=== PATIENT | female | born 2005 | race Caucasian/White ===

== ENCOUNTER 2025-10-30 16:57 | Emergency (ER) | payer OTHER, SELFPAY ==
--- NOTE | ~2025-10-30 | XR_ITS ---
CLINICAL HISTORY: thumb crush injury 4 view left thumb Comparison: None Findings: There is a distracted thumb distal phalangeal tuft fracture No dislocations. No significant arthritic change. No erosions. No radiopaque foreign body. IMPRESSION: 1. Distracted thumb distal phalangeal tuft fracture This document has been electronically signed by: Telly Hackett MD on 10/30/2025 20:58:20
[2025-10-30 17:06] VITALS: BP 120/84; PULSE 100; O2SAT 99
[2025-10-30 17:30] VITALS: BP 122/62; PULSE 81; RESP 16; TEMP 37.1; O2SAT 99; BMI 19.3
--- OUTSIDE RECORDS SUMMARY | 2025-10-30 18:22 | XMS_ITS | Clinical Summary ---
Author Organization [facility] Address [address] [place] [address] Care Team Providers Care [employer] Name Role Phone Unavailable Primary Care Provider Unavailabl e Medications citalopram (CeleXA) 20 mg tablet TAKE 1 & 1/2 (ONE & ONE-HALF) TABLETS BY MOUTH ONCE DAILY 07/12/2022 Active nitrofurantoin, macrocrystal-mo nohydrate, (MACROBID) 100 mg capsule TAKE 1 CAPSULE BY MOUTH EVERY 12 HOURS FOR 5 DAYS 12/20/2023 Active phenazopyridine (PYRIDIUM) 200 mg tablet Take 200 mg by mouth 3 (three) times a day if needed. 12/20/2023 Active azithromycin (Zithromax Z-Robert) 250 mg tablet Take 2 tablets the first day, then 1 tablet daily for 4 days. 6 tablet 08/31/2024 Active fluoride, sodium, (Denta 5000 Plus) 1.1 % cream Apply to teeth 1 (one) time each day. Apply pea size amount, spit and do not rinse. Use every night before bed 51 g 09/28/2025 Active Active Problems No known active problems Encounters Date Type Department Care Team Description 10/30/2025 Refill [facility] 193 [facility], [facility] [address] [place] [address] Cristy Gorman DDS 09/26/2025 9:00 AM EST Office Visit [facility] 193 [facility], [facility] [address] [place] [address] Cristy Gorman DDS Encounter for dental examination and cleaning without abnormal findings (Primary Dx) from Last 3 Months Social History Tobacco Use Types Packs/Day Years Used Date Smoking Tobacco: Never Assessed Comments Unknown Sex and Gender Information Value Date Recorded Sex Assigned at Not on file Legal Sex Female 7:35 AM PDT Gender Identity Not on file Sexual Orientation Not on file Last Filed Vital Signs Vital Sign Reading Time Taken Comments Blood Pressure 89/56 09/26/2025 9:30 AM EST Pulse 63 09/26/2025 9:30 AM EST Temperature - - Respiratory Rate - - Oxygen Saturation - - Inhaled Oxygen Concentration - - Weight - - Height - - Body Mass Index - - Plan of Treatment Upcoming Encounters Date Type Department Care Team (Late st Contact Info) Description 03/30/2026 10:00 AM EDT Office Visit [facility] [address] [place] [address] Cristy Gorman, DDS [address] [facility] [address] [place], [place] [phone] Health Maintenance Due Date Last Done Comments Dental X-Ray: Full Mouth 2004 Velscope Screening 12/23/2023 Dental Oral Exam 03/27/2026 09/26/2025, , 12/23/2023, Additional history exists Dental Prophylaxis 03/27/2026 09/26/2025, 1 , 12/23/2023, Additional history exists Dental X-Ray: Bitewings 03/27/2026 09/26/2025 Dental X-Ray: Panoramic 08/18/2027 08/17/2024 Procedures Procedure Name Priority Date/Time Associated Diagnosis Comments ORAL FITNESS AMMP-8 DOCKED DEVICE Routine 09/26/2025 7:30 PM EST 10 ML RESIN-BASED COMPOSITE - TWO SURFACES, ANTERIOR Routine 09/26/2025 9:00 AM EST ORAL HYGIENE INSTRUCTIONS Routine 09/26/2025 9:00 AM EST TOPICAL APPLICATION OF FLUORIDE VARNISH Routine 09/26/2025 9:00 AM EST PROPHYLAXIS - ADULT Routine 09/26/2025 9 :00 AM EST Encounter for dental examination and cleaning without abnormal findings PERIODIC ORAL EVALUATION - ESTABLISHED PATIENT Routine 09/26/2025 9:00 AM EST Encounter for dental examination and cleaning without abnormal findings ADDITIONAL X-RAY Routine 09/26/2025 9:00 AM EST SINGLE X-RAY Routine 09/26/2025 9:00 AM EST BITEWINGS - FOUR RADIOGRAPHIC IMAGES Routine 09/26/2025 9:00 AM EST 7 ML COMPOSITE FILLING Routine 09/26/2025 12:00 AM EST 10 ML COMPOSITE FILLING Routine 09/26/2025 12:00 AM EST 9 L COMPOSITE FILLING Routine 09/26/2025 12:00 AM EST 9 M COMPOSITE FILLING Routine 09/26/2025 12:00 AM EST 8 M COMPOSITE FILLING Routine 09/26/2025 12:00 AM EST from Last 3 Months Results * (ABNORMAL) POCT Oral Fitness AMMP-8 docked device (09/26/2025 7:30 PM EST) Active matrix metalloprotein ase-8 level 62(RPD) ng/ml DENTOGNOSTICS Saliva Salivary gland structure / Unknown us Dante Hinkle DDS PDS POCT [facility] F inal Result DENTOGNOSTICS from Last 3 Months Insurance [facility]
--- OUTSIDE RECORDS SUMMARY | 2025-10-30 18:22 | XMS_ITS | Encounter Summary ---
Author Organization [facility] Address [address] [place] [address] Care Team Providers Care Audograph Operator Name Role Phone Unavailable Primary Care Provider Unavailabl e Prior Encounters Date Type Department Care Team Description 10/30/2025 Refill [facility] 193 [facility], [address] [address] Cristy Gorman DDS 09/26/2025 9:00 AM EST Office Visit [facility] 193 [facility], [address] [address] Cristy Gorman DDS Encounter for dental examination and cleaning without abnormal findings (Primary Dx) 09/17/2024 9:30 AM EST Office Visit [facility] 193 [facility], [address] [address] Dante Hinkle, TARUNS 09/08/2024 1:00 PM EST Office Visit [facility] 193 [facility], [address] [address] Marlyn Calero, DMD 09/02/2024 Orders Only [facility] 193 [facility], [address] [address] Dante Hinkle, TARUNS 08/31/2024 Orders Only [facility] [address] [facility], [address] [address] Dante Hinkle, TARUNS 08/20/2024 1:00 PM EDT Office Visit [facility] 193 [facility], [address] [address] Dante Hinkle, DDS 08/17/2024 8:00 AM EDT Office Visit [facility] [address] [facility], [facility] [address] [place] [address] Olu Carreon, [facility] Encounter for dental examination and cleaning without abnormal findings (Primary Dx) 08/17/2024 8:00 AM EDT Office Visit [facility] [address] [facility], [facility] [address] [place] [address] Dante Hinkle, DDS Encounter for dental examination and cleaning without abnormal findings (Primary Dx) 02/10/2024 2:30 PM EDT Office Visit [facility] 193 [facility], [facility] [address] [place] [address] Parag De La Paz III, DDS 12/23/2023 9:00 AM EST Office Visit [facility] 193 [facility], [facility] [address] [place] [address] Ruth Laughlin, [facility] Encounter for dental examination and cleaning without abnormal findings (Primary Dx) 12/23/2023 8:45 AM EST Office Visit [facility] [address] [facility], [facility] [address] [place] [address] Dante Hinkle, DDS Encounter for dental examination and cleaning without abnormal findings (Primary Dx) 08/25/2023 2:30 PM EDT Office Visit [facility] [address] [facility], [facility] [address] [place] [address] Parag De La Paz III, DDS 06/23/2023 Travel 06/23/2023 12:00 PM EDT Office Visit [facility] 193 [facility], [facility] [address] [place] [address] Dante Hinkle, TARUNS 06/20/2023 Travel 06/20/2023 3:00 PM EDT Office Visit [facility] 193 [facility], [facility] [address] [place] [address] Marlyn Calero, DMD 06/11/2023 Travel 06/11/2023 1:30 PM EDT Office Visit [facility] [address] [place] [place] [address] Dante Hinkle, DDS 05/09/2023 Travel 05/09/2023 12:30 PM EDT Office Visit [facility] [address], [facility] [address] [place] [address] Dante Hinkle, DDS 04/30/2023 Travel 04/30/2023 11:00 AM EDT Office Visit [facility] [address], [facility] [address] [place] [address] Do El, [facility] 04/30/2023 10:30 AM EDT Office Visit [facility] [address], [facility] [address] [place] [address] Parag Murphy, DDS 03/07/2023 12:00 PM EDT Office Visit [facility] [address], [facility] [address] [place] [address] Hemanth Ryan, PAGE 09/17/2022 Travel 09/17/2022 10:00 AM EST Office Visit [facility] [address], [facility] [address] [place] [address] Dante Hinkle, DDS 09/09/2022 Travel 09/09/2022 1:00 PM EST Office Visit [facility] [address], [facility] [address] [place] [address] Dante Hinkle, DDS 08/01/2022 Travel 08/01/2022 10:45 AM EDT Office Visit [facility] [address], [facility] [address] [place] [address] Hemanth Ryan, DMD Last Filed Vital Signs Vital Sign Reading [...] Description 03/30/2026 10:00 AM EDT Office Visit [facility] [address] [facility] [place] [place] [address] Cristy Gorman, DDS [address] [facility] [address] [place] [address] Procedures Procedure Name Priority Date/Time Associated Diagnosis [...] COMPOSITE FILLING Routine 09/26/2025 12:00 AM EST NC X-RAY Routine 09/17/2024 9:30 AM EST 31 CEMENT CROWN Routine 09/17/2024 9:30 AM EST 31 CORE BUILDUP, INCLUDING ANY PINS WHEN REQUIRED Routine 09/17/2024 9:30 AM EST NC X-RAY Routine 09/08/2024 1:00 PM EST ENDO CONSULT Routine 09/08/2024 1:00 PM EST 31 INTRAORIFICE BARRIER Routine 09/08/2024 1:00 PM EST 31 TREATMENT OF ROOT CANAL OBSTRUCTION; NON-SURGICAL ACCESS Routine 09/08/2024 1:00 PM EST 31 ENDODONTIC THERAPY, MOLAR TOOTH (EXCLUDING FINAL TAOIST) Routine 09/08/2024 1:00 PM EST 14 DO RESIN-BASED COMPOSITE - TWO SURFACES, POSTERIOR Routine 08/20/2024 1:00 PM EDT 12 DO RESIN-BASED COMPOSITE - TWO SURFACES, POSTERIOR Routine 08/20/2024 1:00 PM EDT 31 CERECFIRED CROWNPOST Routine 08/20/2024 1:00 PM EDT PALLIATIVE TREATMENT OF DENTAL PAIN Routine 08/20/2024 1:00 PM EDT ORAL FITNESS AMMP-8 MANUALLY RESULTED Routine 08/17/2024 2:13 PM EDT ORAL HYGIENE INSTRUCTIONS Routine 08/17/2024 8:00 AM EDT IVELISSE DECON Routine 08/17/2024 8:00 AM EDT PROPHYLAXIS - ADULT Routine 08/17/2024 8 :00 AM EDT Encounter for dental examination and cleaning without abnormal findings LR ANTIBACT IRR/QUAD Routine 08/17/2024 8:00 AM EDT LL ANTIBACT IRR/QUAD Routine 08/17/2024 8:00 AM EDT UL ANTIBACT IRR/QUAD Routine 08/17/2024 8:00 AM EDT UR ANTIBACT IRR/QUAD Routine 08/17/2024 8:00 AM EDT DDMA HEALTHY BODIES PROGRAM Routine 08/17/2024 8:00 AM EDT BITEWINGS - FOUR RADIOGRAPHIC IMAGES Routine 08/17/2024 8:00 AM EDT ADDITIONAL X-RAY Routine 08/17/2024 8:00 AM EDT SINGLE X-RAY Routine 08/17/2024 8:00 AM EDT PERIODIC ORAL EVALUATION - ESTABLISHED PATIENT Routine 08/17/2024 8:00 AM EDT Encounter for dental examination and cleaning without abnormal findings 13 DO RESIN-BASED COMPOSITE - TWO SURFACES, POSTERIOR Routine 02/10/2024 2:30 PM EDT 14 MO RESIN-BASED COMPOSITE - TWO SURFACES, POSTERIOR Routine 02/10/2024 2:30 PM EDT ORAL HYGIENE INSTRUCTIONS Routine 12/23/2023 9:00 AM EST Encounter for dental examination and cleaning without abnormal findings TOPICAL APPLICATION OF FLUORIDE VARNISH Routine 12/23/2023 9:00 AM EST Encounter for dental examination and cleaning without abnormal findings PROPHYLAXIS - ADULT Routine 12/23/2023 9 :00 AM EST Encounter for dental examination and cleaning without abnormal findings PERIODIC ORAL EVALUATION - ESTABLISHED PATIENT Routine 12/23/2023 8:45 AM EST Encounter for dental examination and cleaning without abnormal findings 18 MO REDO FILLINGS Routine 08/25/2023 2 :30 PM EDT OFFICE VISIT FOR OBSERVATION (DURING REGULARLY SCHEDULED HOURS) - NO OTHER SERVICES PERFORMED Routine 08/25/2023 2:30 PM EDT 3 CEMENT CROWN Routine 06/23/2023 12:00 PM EDT 3 CERECFIRED CROWNPOST Routine 06/23/2023 12:00 PM EDT 3 CORE BUILDUP, INCLUDING ANY PINS WHEN REQUIRED Routine 06/23/2023 12:00 PM EDT 3 TREATMENT OF ROOT CANAL OBSTRUCTION; NON-SURGICAL ACCESS Routine 06/20/2023 3:00 PM EDT 3 INTRAORIFICE BARRIER Routine 06/20/2023 3:00 PM EDT 3 PULP VITALITY TESTS Routine 06/20/2023 3:00 PM EDT 3 ENDODONTIC THERAPY, MOLAR TOOTH (EXCLUDING FINAL TAOIST) Routine 06/20/2023 3:00 PM EDT NC X-RAY Routine 06/20/2023 3:00 PM EDT LIMITED ORAL EVALUATION - PROBLEM FOCUSED Routine 06/20/2023 3:00 PM EDT SINGLE X-RAY Routine 06/11/2023 1:30 PM EDT LIMITED ORAL EVALUATION - PROBLEM FOCUSED Routine 06/11/2023 1:30 PM EDT 3 REDO FILLINGS Routine 05/09/2023 12:30 PM EDT ORAL HYGIENE INSTRUCTIONS Routine 04/30/2023 11:00 AM EDT PROPHYLAXIS - ADULT Routine 04/30/2023 1 1:00 AM EDT BITEWINGS - FOUR RADIOGRAPHIC IMAGES Routine 04/30/2023 10:30 AM EDT ADDITIONAL X-RAY Routine 04/30/2023 10:3 0 AM EDT SINGLE X-RAY Routine 04/30/2023 10:30 AM EDT PERIODIC ORAL EVALUATION - ESTABLISHED PATIENT Routine 04/30/2023 10:30 AM EDT 31 MO COMPOSITE FILLING Routine 04/30/2023 12:00 AM EDT 18 REDO FILLINGS Routine 03/07/2023 12:0 0 PM EDT LIMITED ORAL EVALUATION - PROBLEM FOCUSED Routine 03/07/2023 12:00 PM EDT SINGLE X-RAY Routine 03/07/2023 12:00 PM EDT 8 DL RESIN-BASED COMPOSITE - TWO SURFACES, ANTERIOR Routine 09/17/2022 10:00 AM EST 18 MO RESIN-BASED COMPOSITE - TWO SURFACES, POSTERIOR Routine 09/17/2022 10:00 AM EST 19 DO RESIN-BASED COMPOSITE - TWO SURFACES, POSTERIOR Routine 09/17/2022 10:00 AM EST 20 DO RESIN-BASED COMPOSITE - TWO SURFACES, POSTERIOR Routine 09/17/2022 10:00 AM EST ORAL HYGIENE INSTRUCTIONS Routine 09/09/2022 1:00 PM EST TOPICAL APPLICATION OF FLUORIDE VARNISH Routine 09/09/2022 1:00 PM EST PROPHYLAXIS - ADULT Routine 09/09/2022 1 :00 PM EST 5 DO RESIN-BASED COMPOSITE - TWO SURFACES, POSTERIOR Routine 09/09/2022 1:00 PM EST 4 MOD RESIN-BASED COMPOSITE - THREE SURFACES, POSTERIOR Routine 09/09/2022 1:00 PM EST 3 MO RESIN-BASED COMPOSITE - TWO SURFACES, POSTERIOR Routine 09/09/2022 1:00 PM EST BITEWINGS - FOUR RADIOGRAPHIC IMAGES Routine 09/09/2022 1:00 PM EST PERIODIC ORAL EVALUATION - ESTABLISHED PATIENT Routine 09/09/2022 1:00 PM EST ADDITIONAL X-RAY Routine 08/01/2022 10:4 5 AM EDT SINGLE X-RAY Routine 08/01/2022 10:45 AM EDT LIMITED ORAL EVALUATION - PROBLEM FOCUSED Routine 08/01/2022 10:45 AM EDT Results * (ABNORMAL) POCT Oral Fitness AMMP-8 docked device (09/26/2025 7:30 PM EST) Active matrix metalloprotein ase-8 level 62(RPD) ng/ml DENTOGNOSTICS Saliva Salivary gland structure / Unknown Dante Hinkle DDS PDS POCT [facility] F inal Result DENTOGNOSTICS * (ABNORMAL) Oral Fitness AMMP-8 manually resulted (08/17/2024 2:13 PM EDT) Active matrix metalloproteina se-8 level 15(A) 0 - 10 ng/mL Saliva Salivary gland structure / Unknown 08/17/2024 2:13 PM EDT Dante Hinkle DDS PDS POCT [facility] F inal Result Visit Diagnoses Diagnosis Start Date Encounter for dental examination and cleaning without abnormal findings 12/23/2023 Encounter for dental examination and cleaning without abnormal findings 12/23/2023 Encounter for dental examination and cleaning without abnormal findings 08/17/2024 Encounter for dental examination and cleaning without abnormal findings 08/17/2024 Encounter for dental examination and cleaning without abnormal findings 09/26/2025 Insurance [facility]
--- OUTSIDE RECORDS SUMMARY | 2025-10-30 18:22 | XMS_ITS | Encounter Summary ---
Author Organization [facility] Health Address [address] [place] [address] Care Team Providers Care Facilities Maintenance Assistant Name Role Phone Unavailable Primary Care Provider Unavailabl e Reason for Visit * Reason Comments Med Change Request Encounter Details Date Type Department Care Team (Late st Contact Info) Description 10/30/2025 Refill [facility] 193 [facility], [facility] [address] [place] [phone] Cristy Gorman DDS 193 [facility] [address] [place] [phone] Social History Tobacco Use Types Packs/Day Years Used Date Smoking Tobacco: Never Assessed Comments Unknown Sex and Gender Information Value Date Recorded Sex Assigned at Not on file Legal Sex Female 7:35 AM PDT Gender Identity Not on file Sexual Orientation Not on file documented as of this encounter Plan of Treatment Upcoming Encounters Date Type Department Care Team (Late Contact Info) Description 03/30/2026 10:00 AM EDT Office Visit [facility] 193 [facility], [facility] [address] [place] [phone] Cristy Gorman DDS 193 [facility] [address] [place] [address] documented as of this encounter Visit Diagnoses Not on filedocumented in this encounter
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
[2025-10-30] MEDS: Lidocaine HCl 2 % MPF 5 ML VIAL 10 ML INFILTRATI (19:49)
[2025-10-30] MEDS: Diphth,Pertus(ACell),Tet Adult 0.5 ML SYRINGE IM (21:01)
[2025-10-30 21:02] VITALS: BP 108/57; PULSE 83; RESP 18; TEMP 36.7; O2SAT 98
[2025-10-30 21:23] VITALS: BP 108/57; PULSE 83; RESP 18; TEMP 36.7; O2SAT 98
== END 2025-10-30 21:23 | disposition home or self-care (01) ==
PROVIDERS: Emergency Provider Emergency Medicine; PCP Family Medicine
DX: S62.522A Displaced fracture of distal phalanx of left thumb, initial encounter for closed fracture (principal); S60.112A Contusion of left thumb with damage to nail, initial encounter; S09.90XA Unspecified injury of head, initial encounter; R04.0 Epistaxis; M79.642 Pain in left hand; V43.52XA Car driver injured in collision with other type car in traffic accident, initial encounter; Y93.89 Activity, other specified; Y92.413 State road as the place of occurrence of the external cause; Y99.8 Other external cause status; Z23 Encounter for immunization
CPT/HCPCS: 11730; 29130; 73140; 90471; 90715; 99284; J2003

== ENCOUNTER → 2025-10-30 19:47 | Outpatient (BNV) | payer BC, SELFPAY | PROVIDERS: Emergency Provider Emergency Medicine; PCP Family Medicine; Visit Provider Specialist | DX: S62.522A Displaced fracture of distal phalanx of left thumb, initial encounter for closed fracture (principal) | CPT/HCPCS: 73140 ==